=== PATIENT | male | born 1960 | race Caucasian/White ===

== ENCOUNTER 2017-11-28 17:30 | Emergency (ER) | payer OTHER, MEDICARE ==
[~2017-11-28] VITALS: Ht 167.6 cm; Wt 83.9 kg
[~2017-11-28 17:30] MED LIST: ATOR20 PO; BUPR150ER PO; GLIP10 PO; HUMULIN N100 UNIT/1 SQ; Humalog100 UNIT/1 SC; INSULANPEN SC; LISI20 PO; METF500 PO; Novolog Fl100 UNIT/1 SQ; Roxicet 5-3251 EACH PO; SERT100 PO; VITAMIN D-32000 UNIT PO
[2017-11-28] MEDS ORDERED: Wheelchair1 EACH MC (20:40)
== END 2017-11-28 20:47 | disposition home or self-care (01) ==
LOC: ER 17:30
DX: S82.832A Other fracture of upper and lower end of left fibula, initial encounter for closed fracture (principal); E11.9 Type 2 diabetes mellitus without complications; F41.9 Anxiety disorder, unspecified; F32.9 Major depressive disorder, single episode, unspecified; Z88.5 Allergy status to narcotic agent; Z79.899 Other long term (current) drug therapy; Z79.4 Long term (current) use of insulin; W01.0XXA Fall on same level from slipping, tripping and stumbling without subsequent striking against object, initial encounter
CPT/HCPCS: 29515; 73610; 99283-25

== ENCOUNTER → 2018-03-14 | Outpatient (CLI) | payer MEDICARE ==
[~2018-03-14] MED LIST changes: +Wheelchair1 EACH MC
[2018-03-14 20:03] LABS: Bun/Creatinine Ratio 15.3 (12.0-20.0); Calcium, Blood 9.1 mg/dL (8.5-10.1); Creatinine, Blood 1.31 mg/dL (0.60-1.20); Potassium, Blood 4.9 mmol/L (3.5-5.5)
== END | disposition home or self-care (01) ==
LOC: LAB 14:05 → LAB SHORT 14:05
PROVIDERS: Physician Assistant
DX: R79.89 Other specified abnormal findings of blood chemistry (principal)
CPT/HCPCS: 80048

== ENCOUNTER 2020-10-14 08:08 | Day surgery (SDC) | payer MEDICARE ==
[~2020-10-14] VITALS: Ht 170.2 cm; Wt 86.9 kg
[~2020-10-14 08:08] MED LIST changes: +INSULANI SC
--- NOTE | 2020-10-14 09:45 | NUR ---
Ambulatory in Day Surgery WITH PT'S PROSTHETIC LEG. Patient states colon prep results clear YELLOW WITH SMALL FLAKES History, Chart, Medications and Allergies reviewed before start of procedure. Lungs clear T/O to Auscultation. Patient confirms NPO status and agrees with scheduled surgery. Pre-Op teaching done. Pt verbalizes understanding. Patient States Post-Procedure ride home has been arranged.
--- NOTE | 2020-10-14 10:16 | NUR ---
10/14/20 SRINATH GARCIA History, Chart, Medications and Allergies reviewed before start of procedure. 3-LEAD EKG REVIEWED WITH PHYSICIAN PRIOR TO START OF PROCEDURE. O2 VIA N/C INTACT THROUGHOUT SEDATION/PROCEDURE. MONITOR INTACT WITH CONTINUOUS PULSE OXIMETRY AND INTERMITTENT BP. PATIENT DETERMINED TO BE ASA APPROPRIATE FOR PROPOFOL SEDATION PRIOR TO START OF PROCEDURE BY DR. DELUCA.
--- NOTE | 2020-10-14 11:31 | NUR ---
Patient up to Ambulate independently. Gait steady. Discharge instructions reviewed with patient. Patient verbalizes understanding. Copy given to patient to take home. Discharged via wheelchair to private car for ride home.
== END 2020-10-14 22:54 | disposition home or self-care (01) ==
LOC: ORSCMMR 08:08 → ORD 10:00 → ORSCMMR 10:00
PROVIDERS: Internal Medicine Gastroenterology
PROC: 0DBM8ZX Excision of Descending Colon, Via Natural or Artificial Opening Endoscopic, Diagnostic (ICD-10-PCS; principal; 2020-10-14 10:00)
DX: R19.5 Other fecal abnormalities (principal); D12.4 Benign neoplasm of descending colon; Z86.010 Personal history of colon polyps; I10 Essential (primary) hypertension; E11.9 Type 2 diabetes mellitus without complications; Z79.4 Long term (current) use of insulin; Z79.899 Other long term (current) drug therapy
CPT/HCPCS: 82947; 88305; J2704; J7120

== ENCOUNTER 2021-02-21 14:49 | Emergency (ER) | payer MEDICARE ==
[~2021-02-21] VITALS: Ht 167.6 cm; Wt 88.5 kg
== END 2021-02-21 18:20 | disposition home or self-care (01) ==
LOC: ER 14:49
DX: S01.01XA Laceration without foreign body of scalp, initial encounter (principal); M25.511 Pain in right shoulder; E11.9 Type 2 diabetes mellitus without complications; W01.10XA Fall on same level from slipping, tripping and stumbling with subsequent striking against unspecified object, initial encounter
CPT/HCPCS: 12002; 70450; 72125; 73030; 90471; 90714; 96374; 96375; 99285-25; A9270; J2270; J2405

== ENCOUNTER 2021-03-03 14:06 | Emergency (ER) | payer MEDICARE ==
[~2021-03-03] VITALS: Ht 167.6 cm; Wt 89.8 kg
[2021-03-03] MEDS ORDERED: Cephalexin500 M1 PO (15:51)
== END 2021-03-03 16:02 | disposition home or self-care (01) ==
LOC: ER 14:06
DX: S01.01XA Laceration without foreign body of scalp, initial encounter (principal); Z79.899 Other long term (current) drug therapy; Z88.5 Allergy status to narcotic agent; Z79.4 Long term (current) use of insulin; E11.9 Type 2 diabetes mellitus without complications
CPT/HCPCS: 12001; 99282-25

== ENCOUNTER 2021-03-10 13:37 | Emergency (ER) | payer MEDICARE ==
[~2021-03-10] VITALS: Ht 167.6 cm; Wt 86.2 kg
[~2021-03-10 13:37] MED LIST changes: +Cephalexin500 M1 PO
== END 2021-03-10 15:20 | disposition home or self-care (01) ==
LOC: ER 13:37
DX: S01.81XD Laceration without foreign body of other part of head, subsequent encounter (principal); E11.9 Type 2 diabetes mellitus without complications; Z79.4 Long term (current) use of insulin; Z79.899 Other long term (current) drug therapy; Z88.5 Allergy status to narcotic agent; X58.XXXD Exposure to other specified factors, subsequent encounter
CPT/HCPCS: 82947; 99282

== ENCOUNTER → 2021-03-11 | Outpatient (CLI) | payer MEDICARE ==
[2021-03-11 17:14] LABS: Albumin, Blood 1.6 g/dL (3.4-5.0); Albumin/Globulin Ratio 0.5 (0.8-1.8); Bilirubin, Total 0.2 mg/dL (0.1-1.0); Bun/Creatinine Ratio 13.4 (12.0-20.0); Calcium, Blood 8.3 mg/dL (8.5-10.1); Creatinine, Blood 1.57 mg/dL (0.60-1.20); Globulin, Blood 3.4 g/dL (2.2-4.0); Potassium, Blood 4.1 mmol/L (3.5-5.5)
== END ==
LOC: LAB 15:05 → LAB SHORT 15:05
PROVIDERS: Surgery
DX: Z01.812 Encounter for preprocedural laboratory examination (principal); E11.9 Type 2 diabetes mellitus without complications; I10 Essential (primary) hypertension
CPT/HCPCS: 36415; 80053

== ENCOUNTER 2021-03-13 07:10 | Day surgery (SDC) | payer MEDICARE ==
[~2021-03-13] VITALS: Ht 167.6 cm; Wt 86.4 kg
--- NOTE | 2021-03-13 08:45 | NUR ---
PT'S FASTING BLOOD GLUCOSE WAS [address] CARLEY WALKER NOTIFIED. DR. WALKER CONSULTED WITH DR. POTTS ABOUT THE ELEVATED BLOOD SUGAR AND DR. POTTS CAME TO BEDSIDE TO DISCUSS WITH PT WHAT THE RISKS WOULD BE IF HE WERE TO PROCEDE WITH THE PROCEDURE. PT WAS VERY UNDERSTANDING. DR. POTTS PLANS TO RESCHEDULE THE SURGERY AT A LATER TIME.
== END 2021-03-13 23:30 | disposition home or self-care (01) ==
LOC: ORSCMMR 07:10 → ORD 08:30 → ORSCMMR 08:30
DX: K43.0 Incisional hernia with obstruction, without gangrene (principal); Z53.9 Procedure and treatment not carried out, unspecified reason; E11.9 Type 2 diabetes mellitus without complications
CPT/HCPCS: 82947; J0690; J7120

== ENCOUNTER 2021-12-08 07:37 | Emergency (ER) | payer MEDICARE ==
[~2021-12-08] VITALS: Ht 167.6 cm; Wt 74.8 kg
[2021-12-08 08:44] LABS: BASOPHILS ABSOLUTE AUTO 0.07 K/mm3 (0.00-0.23); BASOPHILS PERCENT AUTO 1 % (0-2); EOSINOPHILS ABSOLUTE AUTO 0.08 K/mm3 (0.00-0.68); EOSINOPHILS PERCENT AUTO 1 % (0-6); Hematocrit 41.9 % (37.0-53.0); IMMATURE GRAN ABSOLUTE AUTO 0.15 K/mm3 (0.00-0.10); IMMATURE GRAN PERCENT AUTO 1 % (0-1); LYMPHOCYTES ABSOLUTE AUTO 1.18 K/mm3 (0.84-5.20); LYMPHOCYTES PERCENT AUTO 11 % (21-46); MONOCYTES ABSOLUTE AUTO 0.63 K/mm3 (0.16-1.47); MONOCYTES PERCENT AUTO 6 % (4-13); Mean Corpuscular HGB 31.3 pg (26.0-34.0); Mean Corpuscular HGB Conc 33.4 g/dL (31.5-36.5); Mean Corpuscular Volume 94 fL (80-100); Mean Platelet Volume 9.8 fL (9.1-12.4); NEUTROPHILS ABSOLUTE AUTO 8.65 K/mm3 (1.96-9.15); NEUTROPHILS PERCENT AUTO 80 % (41-73); Platelet Count 186 K/mm3 (150-400); RDW Coefficient Variation 13.2 % (11.7-14.2); RDW Standard Deviation 45.9 fL (35.1-46.3); Red Blood Cell Count 4.47 M/mm3 (4.30-5.90); White Blood Cell Count 10.76 K/mm3 (4.00-11.30)
[2021-12-08 09:06] LABS: Albumin, Blood 1.4 g/dL (3.4-5.0); Albumin/Globulin Ratio 0.4 (0.8-1.8); Bilirubin, Total 0.1 mg/dL (0.1-1.0); Bun/Creatinine Ratio 15.7 (12.0-20.0); Calcium, Blood 8.3 mg/dL (8.5-10.1); Creatinine, Blood 1.4 mg/dL (0.60-1.20); Potassium, Blood 4.4 mmol/L (3.5-5.5); Total Protein, Blood 5.4 g/dL (6.4-8.2)
[2021-12-08] MEDS ORDERED: Prinivil10 MG PO (09:25)
== END 2021-12-08 13:25 | disposition home or self-care (01) ==
LOC: ER 07:37
PROVIDERS: Emergency Medicine
DX: E11.65 Type 2 diabetes mellitus with hyperglycemia (principal); I10 Essential (primary) hypertension; Z88.5 Allergy status to narcotic agent; Z79.4 Long term (current) use of insulin; Z79.899 Other long term (current) drug therapy; Z89.611 Acquired absence of right leg above knee
CPT/HCPCS: 36415; 80053; 82947; 85025; J7042

== ENCOUNTER 2022-04-11 12:19 | Emergency (ER) | payer MEDICARE ==
[~2022-04-11] VITALS: Ht 167.6 cm; Wt 82.5 kg
[~2022-04-11 12:19] MED LIST changes: +Prinivil10 MG PO
[2022-04-11] MEDS ORDERED: GVOKE HYPO1 MG/0.21 (12:30)
[2022-04-11] MEDS ORDERED: ZESTRIL40 M1 PO (12:30)
[2022-04-11] MEDS ORDERED: TOUJEO SOL300 UNIT/2 (12:31)
[2022-04-11] MEDS ORDERED: ADMELOG SO100 UNIT/2 (12:32)
[2022-04-11] MEDS ORDERED: HYDR1TAB94 PO (13:13)
== END 2022-04-11 15:50 | disposition home or self-care (01) ==
LOC: ER 12:19
DX: S52.301A Unspecified fracture of shaft of right radius, initial encounter for closed fracture (principal); S00.83XA Contusion of other part of head, initial encounter; W18.30XA Fall on same level, unspecified, initial encounter; E11.9 Type 2 diabetes mellitus without complications
CPT/HCPCS: 73090

== ENCOUNTER 2022-07-24 20:20 | Inpatient (IN) | payer MEDICARE ==
[~2022-07-24] VITALS: Ht 167.6 cm; Wt 68.8 kg
[~2022-07-24 20:20] MED LIST changes: +ADMELOG SO100 UNIT/2 SC; +GVOKE HYPO1 MG/0.21; +HYDR1TAB94 PO; +TOUJEO SOL300 UNIT/2 SC; +ZESTRIL40 M1 PO
[2022-07-24 21:06] LABS: Base Excess Venous -28.5 mmol/L; Bicarbonate Venous 7.4 mmol/L (24.0-30.0); PCO2 Venous 14.5 mmHg (38-42)
[2022-07-24 21:09] LABS: pH Blood Venous 6.97 (7.34-7.37)
[2022-07-24 21:26] LABS: Albumin, Blood 1.7 g/dL (3.4-5.0); Albumin/Globulin Ratio 0.4 (0.8-1.8); Bilirubin, Total 0.6 mg/dL (0.1-1.0); Bun/Creatinine Ratio 17.5 (12.0-20.0); Calcium, Blood 8.2 mg/dL (8.5-10.1); Creatinine, Blood 1.77 mg/dL (0.60-1.20); Globulin, Blood 4.3 g/dL (2.2-4.0); Potassium, Blood 5.5 mmol/L (3.5-5.5)
[2022-07-24 22:57] LABS: Source, Urine Clean Catch
[2022-07-24 23:04] LABS: BASOPHILS ABSOLUTE AUTO 0.08 K/mm3 (0.00-0.23); BASOPHILS PERCENT AUTO 1 % (0-2); EOSINOPHILS PERCENT AUTO 0 % (0-6); Hematocrit 43.5 % (37.0-53.0); Hemoglobin 14.8 g/dL (13.5-17.5); IMMATURE GRAN ABSOLUTE AUTO 0.21 K/mm3 (0.00-0.10); IMMATURE GRAN PERCENT AUTO 2 % (0-1); LYMPHOCYTES ABSOLUTE AUTO 1.01 K/mm3 (0.84-5.20); LYMPHOCYTES PERCENT AUTO 7 % (21-46); MONOCYTES ABSOLUTE AUTO 0.94 K/mm3 (0.16-1.47); MONOCYTES PERCENT AUTO 7 % (4-13); Mean Corpuscular HGB 30.1 pg (26.0-34.0); Mean Corpuscular Volume 89 fL (80-100); Mean Platelet Volume 11.9 fL (9.1-12.4); NEUTROPHILS ABSOLUTE AUTO 11.56 K/mm3 (1.96-9.15); NEUTROPHILS PERCENT AUTO 84 % (41-73); Platelet Count 302 K/mm3 (150-400); RDW Coefficient Variation 13.2 % (11.7-14.2); Red Blood Cell Count 4.91 M/mm3 (4.30-5.90)
[2022-07-24 23:12] LABS: Appearance, Urine Clear (Clear); Bilirubin, Urine Neg (Neg); Blood, Urine 4+ (Neg); Color, Urine Yellow (P-Yellow); Glucose Qualitative, Urine 4+ (Neg); Ketones, Urine 4+ (Neg); Leukocyte Esterase, Urine Neg (Neg); Nitrite, Urine Neg (Neg); Protein, Urine 4+ (Neg); Urobilinogen, Urine NORM (Normal)
[2022-07-24 23:26] LABS: White Blood Cells, Urine 0-2 /hpf (0-5)
[2022-07-24 23:27] LABS: Bacteria Rare /hpf; Hyaline Casts 0-2 /lpf (0-2); Squamous Epithelial Cells Rare /hpf (Few)
[2022-07-25] VITALS (24 sets, daily range): BP systolic 120–169; BP diastolic 51–107
[2022-07-25 02:57] LABS: Albumin, Blood 2.5 g/dL (3.4-5.0); Albumin/Globulin Ratio 0.7 (0.8-1.8); Bilirubin, Total 0.4 mg/dL (0.1-1.0); Calcium, Blood 8.2 mg/dL (8.5-10.1); Creatinine, Blood 1.76 mg/dL (0.60-1.20); Globulin, Blood 3.8 g/dL (2.2-4.0); Potassium, Blood 4.4 mmol/L (3.5-5.5); Total Protein, Blood 6.3 g/dL (6.4-8.2)
[2022-07-25 03:56] LABS: BASOPHILS ABSOLUTE AUTO 0.03 K/mm3 (0.00-0.23); BASOPHILS PERCENT AUTO 0 % (0-2); EOSINOPHILS PERCENT AUTO 0 % (0-6); Hematocrit 36.6 % (37.0-53.0); Hemoglobin 13.4 g/dL (13.5-17.5); IMMATURE GRAN ABSOLUTE AUTO 0.13 K/mm3 (0.00-0.10); IMMATURE GRAN PERCENT AUTO 1 % (0-1); LYMPHOCYTES PERCENT AUTO 8 % (21-46); MONOCYTES ABSOLUTE AUTO 0.73 K/mm3 (0.16-1.47); MONOCYTES PERCENT AUTO 6 % (4-13); Mean Corpuscular HGB Conc 36.6 g/dL (31.5-36.5); Mean Corpuscular Volume 85 fL (80-100); Mean Platelet Volume 10.6 fL (9.1-12.4); NEUTROPHILS ABSOLUTE AUTO 9.64 K/mm3 (1.96-9.15); NEUTROPHILS PERCENT AUTO 84 % (41-73); Platelet Count 200 K/mm3 (150-400); RDW Coefficient Variation 13.1 % (11.7-14.2); Red Blood Cell Count 4.32 M/mm3 (4.30-5.90); White Blood Cell Count 11.43 K/mm3 (4.00-11.30)
--- NOTE | 2022-07-25 04:45 | NUR ---
NOTIFIED DR. CEBALLOS REGARDING BG OF 170 AND CO2 ON LABS. PROVIDER PLACING ORDERS.
--- NOTE | 2022-07-25 06:24 | NUR ---
SHIFT SUMMARY PATIENT LETHARGIC, DOES OPEN EYES ON COMMAND, A&O X4. VS STABLE. PATIENT ARRIVED WITH KUSSMAUL BREATHING WHICH HAS SUBSIDED. FLUIDS AND INSULIN INFUSING. Q1 BG CHECKS. DENIES PAIN.
--- NOTE | 2022-07-25 09:12 | NUR ---
ASSUMED CARE REPORT FROM SLOAN JARQUIN AT 0700. PT RESTING IN BED. WAKES c VERBAL STIMULI. FOLLOWS SIMPLE DIRECTIONS. ORIENTED TO SELF ONLY. REORIENTS EASILY. RETURNS TO SLEEP WHEN UNDISTURBED. SR, RATE 80'S. BP STABLE. LUNGS CLEAR. ABD ROUND, SOFT, NON TENDER. HYPOACTIVE BT. INSULIN GTT AND D5 c HCO3 INFUSING. q1 CBG. WILL CONTINUE TO MONITOR.
[2022-07-25 10:01] LABS: Bun/Creatinine Ratio 21.2 (12.0-20.0); Calcium, Blood 7.6 mg/dL (8.5-10.1); Creatinine, Blood 1.37 mg/dL (0.60-1.20)
[2022-07-25 10:28] LABS: Percent Saturation 13.5 % (20.0-50.0); Thyroid Stimulating Hormone 1.65 uIU/mL (0.360-4.800)
[2022-07-25 15:14] LABS: Bun/Creatinine Ratio 20.6 (12.0-20.0); Calcium, Blood 7.7 mg/dL (8.5-10.1); Creatinine, Blood 1.31 mg/dL (0.60-1.20); Potassium, Blood 3.4 mmol/L (3.5-5.5)
--- NOTE | 2022-07-25 17:26 | NUR ---
SHIFT SUMMARY PT TRANSITIONED OFF INSULIN GTT THIS SHIFT. TOLERATING CLEAR LIQUID WELL. DENIES NAUSEA. FLAT AFFECT. A&O X 2. FOLLOWS COMMANDS. RELUCTANT TO ANSWER QUESTIONS. LUNGS CLEAR. SR, RATE 80'S. BP STABLE. ABD ROUND, SOFT, NON TENDER. BT X 4. BEDBATH COMPLETE THIS SHIFT. PT ABLE TO REPOSITION SELF IN BED, ASSIST c CARE. NEEDS ENCOURAGEMENT. WILL CONTINUE TO MONITOR UNTIL REPORT TO ONCOMING NURSE.
--- NOTE | 2022-07-25 19:23 | NUR ---
ASSUMED CARE PATIENT IN BED WATCHING TV/EATING DINNER ALERT. NO FAMILY AT BEDSIDE. FLUIDS INFUSING. VS STABLE
[2022-07-25 21:04] LABS: Bun/Creatinine Ratio 20.6 (12.0-20.0); Calcium, Blood 7.6 mg/dL (8.5-10.1); Creatinine, Blood 1.26 mg/dL (0.60-1.20); Potassium, Blood 3.2 mmol/L (3.5-5.5)
--- NOTE | 2022-07-25 22:11 | NUR ---
NOTIFIED DR. VARGHESE OF POTASSIUM, CO2, BLOOD GLUCOSE. ORDERS RECEIVED.
[2022-07-26] VITALS (13 sets, daily range): BP systolic 110–148; BP diastolic 48–75
[2022-07-26 02:37] LABS: Hematocrit 31.8 % (37.0-53.0); Hemoglobin 11.4 g/dL (13.5-17.5); Mean Corpuscular HGB 30.8 pg (26.0-34.0); Mean Corpuscular HGB Conc 35.8 g/dL (31.5-36.5); Mean Corpuscular Volume 86 fL (80-100); Mean Platelet Volume 10.3 fL (9.1-12.4); Platelet Count 149 K/mm3 (150-400); RDW Coefficient Variation 13.6 % (11.7-14.2); RDW Standard Deviation 41.9 fL (35.1-46.3); White Blood Cell Count 6.48 K/mm3 (4.00-11.30)
[2022-07-26 02:56] LABS: Albumin, Blood 1.6 g/dL (3.4-5.0); Albumin/Globulin Ratio 0.5 (0.8-1.8); Bilirubin, Total 0.4 mg/dL (0.1-1.0); Bun/Creatinine Ratio 20.2 (12.0-20.0); Calcium, Blood 7.4 mg/dL (8.5-10.1); Creatinine, Blood 1.29 mg/dL (0.60-1.20); Potassium, Blood 3.4 mmol/L (3.5-5.5); Total Protein, Blood 4.6 g/dL (6.4-8.2)
--- NOTE | 2022-07-26 06:46 | NUR ---
SHIFT SUMMARY PATIENT WITH FLAT AFFECT/WITHDRAWN. MAKES NONSENICAL STATEMENTS, DIFFICULT TO COMMUNICATE AND PATIENT WILL OCCASIONALY NOT ANSWER WHEN ATTEMPTING TO ASSESS NEURO STATUS, PAIN , NEEDS.
[2022-07-26 08:48] LABS: Bun/Creatinine Ratio 19.7 (12.0-20.0); Calcium, Blood 7.9 mg/dL (8.5-10.1); Creatinine, Blood 1.22 mg/dL (0.60-1.20); Potassium, Blood 3.5 mmol/L (3.5-5.5)
--- NOTE | 2022-07-26 09:29 | NUR ---
ASSUMED CARE REPORT FROM SLOAN JARQUIN AT 0700. PT RESTING IN BED. OPENS EYES SPONT, RELUCTANT TO ANSWER QUESTIONS BUT ANSWERS APPROPRIATELY. FOLLOWS COMMANDS. A&OX 3. DENIES ABD PAIN OR NAUSEA. TOLERATED BREAKFAST WELL. ADVANCED DIET. LUNGS DIM IN BASES. SR, RATE 80'S. BP STABLE. ABD ROUND, SOFT, NON TENDER. BT X 4. K REPLACED. IVF AT 125 ML/HR. ANTICIPATE STATUS CHANGE THIS SHIFT. WILL CONTINUE TO MONITOR.
--- NOTE | 2022-07-26 17:09 | NUR ---
SHIFT SUMMARY/TRANSFER TO MEDICAL FLOOR NO ACUTE CHANGES THIS SHIFT. PT CONTINUES TO INTERMITTANTLY HAVE FLAT AFFECT AND RELUCTANCE TO ANSWER QUESTIONS. WILL ANSWER QUESTIONS APPROPRIATELY WHEN PRESSED. FOLLOWS COMMANDS. PT TOLERATED BREAKFAST WELL, ATE LUNCH QUICKLY AND REQUIRED BED CHANGE p URINATING, PT THEN VOMITED p LUNCH. STATES NAUSEA RESOLVED. PT ONLY C/O BEING TIRED. LUNGS CLEAR. VSS. REPORT TO TOÑA DING RN. WILL TRANSFER PT c ALL BELONGINGS TO ROOM 355.
--- NOTE | 2022-07-26 18:17 | NUR ---
Pt arrived to 355 via bed, he is a/ox3, cooperative with care, denies any needs or complaints, settled in room and call light in reach, water available, pt flat, only answering yes/no. turned to his side with eyes closed.
--- NOTE | 2022-07-27 04:58 | NUR ---
MIN WAS EXTREMELY QUIET OVERNIGHT. HE WOULDN'T HAVE MOVED AT ALL IF HE HADN'T BEEN PUSHED AND ASSISTED TO CHANGE POSITIONS. HE WAS VERY FLAT, AND AVOIDED EYE CONTACT WITH ANY STAFF WHO CAME INTO THE ROOM. BLOOD SUGAR WAS 223 AT HS, AND HE ASKED FOR AND RECEIVED A POPSICLE TWICE OVERNIGHT (THESE WERE HIS ONLY SNACKS) NO OTHER SIGNIFICANT INFORMATION NOTED. WILL CONTINUE TO MONITOR
[2022-07-27 05:12] VITALS: BP 138/84
[2022-07-27 08:29] LABS: Albumin, Blood 1.5 g/dL (3.4-5.0); Anion Gap 2 mmol/L (6-16); Blood Urea Nitrogen 19 mg/dL (8-24); Bun/Creatinine Ratio 15.8 (12.0-20.0); CO2, Blood 24 mmol/L (21-32); Calcium, Blood 8.1 mg/dL (8.5-10.1); Chloride, Blood 115 mmol/L (98-108); Glomerular Filtration Rate 68 (60-); Glucose, Blood 157 mg/dL (70-99); Magnesium, Blood 1.8 mg/dL (1.6-2.4); Phosphorus, Blood 1.8 mg/dL (2.5-4.9); Sodium, Blood 141 mmol/L (136-145)
[2022-07-27 08:44] VITALS: BP 149/65
[2022-07-27] MEDS ORDERED: INSULANI SC (13:39)
[2022-07-27] MEDS ORDERED: HUMALOG KW100 UNIT/1 SC (13:41)
[2022-07-27] MEDS ORDERED: PANT20 PO (13:41)
[2022-07-27] MEDS ORDERED: SERT25 PO (13:41)
[2022-07-27] MEDS ORDERED: SEMGLEE (Y100 UNIT/2 SC (14:00)
[2022-07-27 19:18] VITALS: BP 154/80
--- NOTE | 2022-07-27 19:28 | NUR ---
END OF SHIFT SUMMARY: PATIENT DENIED PAIN OR DISCOMFORT THROUGHOUT THE SHIFT. PATIENT HAD A FLAT AFFECT AND WAS WITHDRAWN THROUGHOUT THE DAY. PATIENT SMILED OCCASIONALLY. PATIENT CALM AND COOPERATIVE WITH CARE. PATIENT CHOSE TO SLEEP MOST OF THE DAY. PATIENT WILL ASSIST WITH CARE, BUT DOES CHOSE TO HAVE HELP WHENEVER POSSIBLE. PATIENT UP TO THE CHAIR FOR DINNER WITH A MIN-MOD ASSIST, STAND PIVOT. PATIENT WORKED WITH PT AND OT. PATIENT WAS SCHEDULED FOR DISCHARGE TODAY. PATIENT'S REPORTED THAT THEIR PCP HAD RECOMMENDED SNF. PATIENT'S WAS VERY UPSET THAT WE WERE SENDING HIM HOME WITH HOME HEALTH. AFTER COORDINATING WITH DR. CRENSHAW AND [facility], PATIENT WAS ABLE TO WORK WITH PT AND OT. PATIENT'S WAS UPDATED ABOUT THE SNF RECOMMENDATION.
--- NOTE | 2022-07-28 04:16 | NUR ---
CONCRETE POURER SUMMARY NO ACUTE EVENTS THIS SHIFT. A&OX4. PATIENT EFFECTIVELY COMMUNICATES NEEDS. FLAT AFFECT. VSS. RR EVEN AND UNLABORED ON RA. PATIENT NOTED TO SLEEP WELL THROUGHOUT THE NIGHT. CALL LIGHT WITHIN REACH. BED LOW AND LOCKED. THIS RN WILL CONTINUE TO MONITOR.
[2022-07-28 04:46] VITALS: BP 143/77
[2022-07-28 07:23] VITALS: BP 140/81
[2022-07-28 15:12] VITALS: BP 139/77
--- NOTE | 2022-07-28 15:13 | NUR ---
SHIFT SUMMARY PT RESTING QUIETLY AT START OF SHIFT. WOKE EASILY FOR CARE. UP TO CHAIR FOR MEALS. PT ABLE TO TX SELF BACK AND FORTH FROM BED TO CHAIR; W/C BOUND AT BASELINE D/T R AKA. PT/OT BOTH IN TO WORK WITH PT TODAY. PT TO D/C TO SNF WHEN BED AVAILABLE. BRACE TO R ARM D/T HX OF CVA AND RECENT INJURY. PER REPORT, PT WITH FREQUENT FALLS AT HOME. SS INSULIN ADJUSTED TO MED THIS AM. RESTING QUIETLY AT THIS TIME. CALL LT IN REACH.
[2022-07-28 19:09] VITALS: BP 127/66
[2022-07-28] MEDS ORDERED: AMLODIPINE BESYL5 MG PO (21:32)
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
[2022-07-29 04:05] VITALS: BP 129/63
[2022-07-29 07:55] VITALS: BP 135/64
[2022-07-29 09:33] LABS: Albumin, Blood 1.7 g/dL (3.4-5.0); Anion Gap 0 mmol/L (6-16); Blood Urea Nitrogen 15 mg/dL (8-24); Bun/Creatinine Ratio 12.2 (12.0-20.0); CO2, Blood 32 mmol/L (21-32); Calcium, Blood 8.6 mg/dL (8.5-10.1); Chloride, Blood 108 mmol/L (98-108); Creatinine, Blood 1.23 mg/dL (0.60-1.20); Glomerular Filtration Rate 66 (60-); Glucose, Blood 113 mg/dL (70-99); Phosphorus, Blood 2.7 mg/dL (2.5-4.9); Potassium, Blood 3.5 mmol/L (3.5-5.5); Sodium, Blood 140 mmol/L (136-145)
[2022-07-29 13:30] LABS: SARS-Cov-2 (COVID-19) PCR, MMC NEGATIVE (NEGATIVE)
[2022-07-29] MEDS ORDERED: INSULANPEN SC (14:29)
[2022-07-29] MEDS ORDERED: SERT25 PO (14:30)
[2022-07-29] MEDS ORDERED: PANT20 PO (14:30)
[2022-07-29] MEDS ORDERED: Lisinopril2.5 MG PO (14:31)
[2022-07-29] MEDS ORDERED: DOCUZEN 8.6-501 EACH PO (14:32)
[2022-07-29] MEDS ORDERED: MIRALAX17 GM PO (14:32)
--- NOTE | 2022-07-29 16:08 | NUR ---
SHIFT SUMMARY PT RESTING QUIETLY AT START OF SHIFT. NO C/O. PT MEDICALLY STABLE, WAITING FOR INSURANCE TO CLEAR FOR SNF. MACHINE FIXER LATER IN TO REPORT INSURANCE APPROVED. TRANSPORTATION ARRANGED FOR 1600. PT'S BROUGHT IN PT'S W/C FOR TX TO [facility] PT ABLE TO TX SELF TO CHAIR. PT ALSO ABLE TO WORK WITH THERAPY AGAIN TODAY. PT NOW ABLE TO TX TO CHAIR FROM BED AND BACK WHEN FINISHED EATING. PT DENIED FURTHER NEEDS. BELONGINGS WENT WITH PT.
== END 2022-07-29 16:07 | DRG 638 ==
LOC: ER 20:20 → ICUW 22:00 → MEDS 22:00 → ICUE 07-25 01:34 → MEDS 07-26 18:57 → ENPENDDIS 07-27 09:50 → MEDS 07-29 16:07
PROVIDERS: Emergency Medicine; Internal Medicine; ADMIT Internal Medicine
DX: E11.10 Type 2 diabetes mellitus with ketoacidosis without coma (principal); N17.9 Acute kidney failure, unspecified; E88.09 Other disorders of plasma-protein metabolism, not elsewhere classified; D63.1 Anemia in chronic kidney disease; Z89.611 Acquired absence of right leg above knee; Z20.822 Contact with and (suspected) exposure to COVID-19; F41.9 Anxiety disorder, unspecified; F32.A Depression, unspecified; E86.0 Dehydration; E78.00 Pure hypercholesterolemia, unspecified; I12.9 Hypertensive chronic kidney disease with stage 1 through stage 4 chronic kidney disease, or unspecified chronic kidney disease; N18.30 Chronic kidney disease, stage 3 unspecified; E11.22 Type 2 diabetes mellitus with diabetic chronic kidney disease; Z91.148 Patient's other noncompliance with medication regimen for other reason; Z98.890 Other specified postprocedural states; Z87.891 Personal history of nicotine dependence; Z79.4 Long term (current) use of insulin; Z79.899 Other long term (current) drug therapy
CPT/HCPCS: 36415; 80048; 80053; 80069; 81001; 82607; 82728; 82746; 82803; 82947; 83540; 83550; 83735; 84145; 84443; 85025; 85027; 93005; 93010; 96361; 96374; 97110; 97129; 97162; 97166; 97530; 97535; 99285-25; A9270; C1751; C9113; J1650; J1815; J2405; J3480; J7030; J7050; J7060; J7070; P9046; U0004

== ENCOUNTER 2024-06-21 14:42 | Observation (INO) | payer MEDICARE ==
[~2024-06-21] VITALS: Ht 167.6 cm; Wt 70.7 kg
[~2024-06-21 14:42] MED LIST changes: +AMLODIPINE BESYL5 MG PO; +DOCUZEN 8.6-501 EACH PO; +HUMALOG KW100 UNIT/1 SC; +JARDIANCE25 MG PO; +Lisinopril2.5 MG PO; +MIRALAX17 GM PO; +PANT20 PO; +SEMGLEE (Y100 UNIT/2 SC; +SERT25 PO; +VITAMIN D5000 UNIT
[2024-06-21] MEDS ORDERED: Lactated Ringer's 1,000 ML IV SCH (15:05)
[2024-06-21 15:16] LABS: BASOPHILS ABSOLUTE AUTO 0.11 K/mm3 (0.00-0.23); BASOPHILS PERCENT AUTO 2 % (0-2); EOSINOPHILS ABSOLUTE AUTO 0.09 K/mm3 (0.00-0.68); EOSINOPHILS PERCENT AUTO 1 % (0-6); Hematocrit 44.3 % (37.0-53.0); Hemoglobin 15.8 g/dL (13.5-17.5); IMMATURE GRAN ABSOLUTE AUTO 0.03 K/mm3 (0.00-0.10); IMMATURE GRAN PERCENT AUTO 0 % (0-1); LYMPHOCYTES ABSOLUTE AUTO 0.76 K/mm3 (0.84-5.20); LYMPHOCYTES PERCENT AUTO 10 % (21-46); MONOCYTES ABSOLUTE AUTO 0.33 K/mm3 (0.16-1.47); MONOCYTES PERCENT AUTO 4 % (4-13); Mean Corpuscular HGB 31.4 pg (26.0-34.0); Mean Corpuscular HGB Conc 35.7 g/dL (31.5-36.5); Mean Corpuscular Volume 88 fL (80-100); Mean Platelet Volume 11.3 fL (9.1-12.4); NEUTROPHILS ABSOLUTE AUTO 6.13 K/mm3 (1.96-9.15); NEUTROPHILS PERCENT AUTO 82 % (41-73); Platelet Count 208 K/mm3 (150-400); RDW Coefficient Variation 12.1 % (11.7-14.2); Red Blood Cell Count 5.03 M/mm3 (4.30-5.90); White Blood Cell Count 7.45 K/mm3 (4.00-11.30)
[2024-06-21 15:46] LABS: Beta-hydroxybutyrate 36.3 mg/dL (0.2-2.8)
[2024-06-21 15:53] LABS: Albumin, Blood 2.1 g/dL (3.4-5.0); Albumin/Globulin Ratio 0.5 (0.8-1.8); Bilirubin, Total 0.5 mg/dL (0.1-1.0); Creatinine, Blood 1.31 mg/dL (0.60-1.20); Globulin, Blood 3.9 g/dL (2.2-4.0); Potassium, Blood 4.3 mmol/L (3.5-5.5)
[2024-06-21 16:51] LABS: Base Excess Venous -5.5 mmol/L; Bicarbonate Venous 19.9 mmol/L (24.0-30.0); PCO2 Venous 43.3 mmHg (38-42); pH Blood Venous 7.29 (7.34-7.37)
[2024-06-21] MEDS ORDERED: NS 1,000 ML IV SCH ×2 (17:00→17:30)
[2024-06-21] MEDS ORDERED: Insulin Regular 100 Unit/ML 1ML Dose IV ONE (17:00)
[2024-06-21] MEDS ORDERED: FLU VACC TS2024-25(6MOS UP)/PF 45 MCG/0.5 ML SYRINGE IM SCH (17:35)
[2024-06-21 19:34] LABS: Bun/Creatinine Ratio 15.2 (12.0-20.0); Calcium, Blood 8.2 mg/dL (8.5-10.1); Creatinine, Blood 1.25 mg/dL (0.60-1.20); Potassium, Blood 3.9 mmol/L (3.5-5.5)
[2024-06-21 20:27] VITALS: BP 137/71; BP 177/71
[2024-06-21] MEDS ORDERED: Atorvastatin 10 MG Tab PO SCH (21:00)
[2024-06-21] MEDS ORDERED: Insulin Regular 100 UNIT/ML 10ML Vial SC SCH (21:00)
[2024-06-21] MEDS ORDERED: Insulin Glargine-Yfgn 100 Unit/mL 3 ML SYR SC SCH (21:00)
[2024-06-21] MEDS ORDERED: Insulin Human Lispro 100 Units/ML 3ML Syringe SC SCH (21:00)
[2024-06-21 22:39] LABS: Bicarbonate Venous 23.3 mmol/L (24.0-30.0); PCO2 Venous 34.9 mmHg (38-42); pH Blood Venous 7.42 (7.34-7.37)
[2024-06-21 23:12] LABS: Creatinine, Blood 1.21 mg/dL (0.60-1.20); Potassium, Blood 3.6 mmol/L (3.5-5.5)
[2024-06-22] VITALS (7 sets, daily range): BP systolic 137–169; BP diastolic 74–99
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
[2024-06-22 03:03] LABS: BASOPHILS ABSOLUTE AUTO 0.08 K/mm3 (0.00-0.23); BASOPHILS PERCENT AUTO 1 % (0-2); EOSINOPHILS ABSOLUTE AUTO 0.56 K/mm3 (0.00-0.68); EOSINOPHILS PERCENT AUTO 7 % (0-6); Hemoglobin 14.1 g/dL (13.5-17.5); IMMATURE GRAN ABSOLUTE AUTO 0.04 K/mm3 (0.00-0.10); IMMATURE GRAN PERCENT AUTO 1 % (0-1); LYMPHOCYTES ABSOLUTE AUTO 2.56 K/mm3 (0.84-5.20); LYMPHOCYTES PERCENT AUTO 31 % (21-46); MONOCYTES ABSOLUTE AUTO 0.48 K/mm3 (0.16-1.47); MONOCYTES PERCENT AUTO 6 % (4-13); Mean Corpuscular HGB 31.8 pg (26.0-34.0); Mean Corpuscular HGB Conc 36.2 g/dL (31.5-36.5); Mean Corpuscular Volume 88 fL (80-100); Mean Platelet Volume 10.9 fL (9.1-12.4); NEUTROPHILS ABSOLUTE AUTO 4.42 K/mm3 (1.96-9.15); NEUTROPHILS PERCENT AUTO 54 % (41-73); Platelet Count 188 K/mm3 (150-400); RDW Coefficient Variation 12.1 % (11.7-14.2); Red Blood Cell Count 4.44 M/mm3 (4.30-5.90); White Blood Cell Count 8.14 K/mm3 (4.00-11.30)
[2024-06-22 03:34] LABS: Calcium, Blood 7.5 mg/dL (8.5-10.1); Creatinine, Blood 1.21 mg/dL (0.60-1.20); Potassium, Blood 3.6 mmol/L (3.5-5.5)
--- NOTE | 2024-06-22 05:11 | NUR ---
SHIFT SUMMURY: ALERT AND ORIENTED X 4. ON RA WITH SATURATION >95. MD NOTIFIED OF BLOOD SUGAR ON ARRIVAL AND ORDERED LOW SLIDING SCALE ACHS INSULIN. VITALS CONTINUE TO BE STABLEL. NS INFUSING PER EMAR. PATIENT CALLING APPROPRIATELY AND CALL LIGHT WITHIN REACH. BED IN THE LOWEST POSITION.
[2024-06-22 06:58] LABS: Bun/Creatinine Ratio 11.8 (12.0-20.0); Calcium, Blood 7.8 mg/dL (8.5-10.1); Creatinine, Blood 1.27 mg/dL (0.60-1.20); Potassium, Blood 3.7 mmol/L (3.5-5.5)
[2024-06-22] MEDS ORDERED: buPROPion HCL 150 MG TAB.SR.12H PO SCH (09:00)
[2024-06-22] MEDS ORDERED: Enoxaparin 40 MG/0.4 ML SYR SC SCH (09:00)
[2024-06-22] MEDS ORDERED: Empagliflozin 25 MG TAB PO SCH (09:00)
[2024-06-22] MEDS ORDERED: Cholecalciferol 1000 Unit Tablet (=25MCG) PO SCH (09:00)
[2024-06-22 12:48] LABS: Bun/Creatinine Ratio 12.6 (12.0-20.0); Calcium, Blood 8.3 mg/dL (8.5-10.1); Creatinine, Blood 1.19 mg/dL (0.60-1.20)
[2024-06-22] MEDS ORDERED: Insulin Regular 100 UNIT/ML 10ML Vial SC ONE (13:55)
[2024-06-22] MEDS ORDERED: Insulin Regular 100 Unit/ML 1ML Dose SC ONE (13:55)
[2024-06-22] MEDS ORDERED: Insulin Regular 100 UNIT/ML 10ML Vial SC SCH (16:30)
[2024-06-22 17:25] LABS: Bun/Creatinine Ratio 12.3 (12.0-20.0); Calcium, Blood 8.4 mg/dL (8.5-10.1); Creatinine, Blood 1.22 mg/dL (0.60-1.20); Potassium, Blood 3.9 mmol/L (3.5-5.5)
--- NOTE | 2024-06-22 17:34 | NUR ---
Medical Status / End of Shift Pt A&O x4. Pt reports continued blurry vision, stating "it hasn't really changed." Pt reports blurry vision ongoing "for about 2 weeks." Pt VSS. Spo2 > 92% on RA. Monitor showing NSR prior to telemetry removal. Pt made medical no telemetry status this shift. Pt CBG continues to be elevated. MD w/ order for additional one time 5 units insulin this afternoon in addition to SSC & SSC increased from low to medium this shift. NS gtt rate also increased this shift per MD order. Pt 2 person moderate/heavy assist w/ gait belt to stand/pivot for transfers. Pt w/ R AKA w/ prosthetic leg in rm. Pt reports prosthetic leg "doesn't fit. It just falls right off."
--- NOTE | 2024-06-22 21:19 | NUR ---
ALERT AND ORIENTED X4. ON ROOM AIR. BLOOD PRESSURES STABLE AND SATURATIONS ABOVE 90. CALLS APPROPRIATELY FOR ASSISTANCE. NO TELI. DENIES PAIN. BLOOD GLUCOSE IS TRENDING DOWM. REPORT GIVEN TO BRITTON SANCHEZ. LUIS TRANFERED TO ROOM 329.
--- NOTE | 2024-06-22 22:30 | NUR ---
2132 Patient was received via bed from room PCU 16 to room 329. Pt is alert and oriented. He is oriented to room and call light. Lungs are clear HR regular. Pt is not on tele. Pt arrived with belongings, meds and rt leg prosthetic. Pt denies any pain.
[2024-06-23 02:33] VITALS: BP 126/61
--- NOTE | 2024-06-23 04:44 | NUR ---
Rn summary: Patient has rested on and off this shift. He has needed his blankets readjusted several times. IV fluids continue. Patient continues to deny discomfort. Plan is for poss DC home with . Call light remains in reach.
[2024-06-23 07:43] VITALS: BP 148/69
[2024-06-23 09:58] LABS: Bun/Creatinine Ratio 8.6 (12.0-20.0); Calcium, Blood 8.1 mg/dL (8.5-10.1); Creatinine, Blood 1.16 mg/dL (0.60-1.20); Potassium, Blood 3.2 mmol/L (3.5-5.5)
[2024-06-23] MEDS ORDERED: Potassium Chloride 20 MEQ TabCR PO ONE (12:00)
[2024-06-23] MEDS ORDERED: LISI20 PO (13:11)
[2024-06-23] MEDS ORDERED: Vitamin D1000 UNI1 PO (13:12)
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
== END 2024-06-23 14:04 | disposition home or self-care (01) ==
LOC: ER 14:42 → PCU 14:43 → MEDS 06-22 21:40 → ENPENDDIS 06-23 12:49 → MEDS 06-23 14:04
PROVIDERS: Emergency Medicine; ADMIT Family Medicine
DX: E11.65 Type 2 diabetes mellitus with hyperglycemia (principal); H53.8 Other visual disturbances; I12.9 Hypertensive chronic kidney disease with stage 1 through stage 4 chronic kidney disease, or unspecified chronic kidney disease; E11.22 Type 2 diabetes mellitus with diabetic chronic kidney disease; N18.30 Chronic kidney disease, stage 3 unspecified; E78.5 Hyperlipidemia, unspecified; K06.9 Disorder of gingiva and edentulous alveolar ridge, unspecified; E87.1 Hypo-osmolality and hyponatremia; E11.10 Type 2 diabetes mellitus with ketoacidosis without coma; Z66 Do not resuscitate; Z91.148 Patient's other noncompliance with medication regimen for other reason; Z79.4 Long term (current) use of insulin; Z79.84 Long term (current) use of oral hypoglycemic drugs; Z79.899 Other long term (current) drug therapy; Z88.5 Allergy status to narcotic agent; Z89.611 Acquired absence of right leg above knee
CPT/HCPCS: 36415; 80048; 80053; 82010; 82803; 82947; 83036; 83930; 85025; 96360; 96361; 96372; 97110; 97161; 97165; 97530; 97535; 99285-25; A9270; G0378; J1650; J1815; J7030; J7120

== ENCOUNTER 2024-07-05 17:05 | Inpatient (IN) | payer MEDICARE ==
[~2024-07-05] VITALS: Ht 167.6 cm; Wt 66.1 kg
[~2024-07-05 17:05] MED LIST changes: +Vitamin D1000 UNI1 PO
[2024-07-05] MEDS ORDERED: NS 1,000 ML IV SCH (17:45)
[2024-07-05 17:51] LABS: Base Excess Venous -21.3 mmol/L; Bicarbonate Venous 11.3 mmol/L (24.0-30.0); PCO2 Venous 20.9 mmHg (38-42)
[2024-07-05 17:52] LABS: pH Blood Venous 7.16 (7.34-7.37)
[2024-07-05 18:17] LABS: BASOPHILS ABSOLUTE AUTO 0.07 K/mm3 (0.00-0.23); BASOPHILS PERCENT AUTO 1 % (0-2); EOSINOPHILS ABSOLUTE AUTO 0.01 K/mm3 (0.00-0.68); EOSINOPHILS PERCENT AUTO 0 % (0-6); Hematocrit 47.1 % (37.0-53.0); Hemoglobin 16.8 g/dL (13.5-17.5); IMMATURE GRAN ABSOLUTE AUTO 0.09 K/mm3 (0.00-0.10); IMMATURE GRAN PERCENT AUTO 1 % (0-1); LYMPHOCYTES PERCENT AUTO 14 % (21-46); MONOCYTES ABSOLUTE AUTO 0.65 K/mm3 (0.16-1.47); MONOCYTES PERCENT AUTO 7 % (4-13); Mean Corpuscular HGB 31.5 pg (26.0-34.0); Mean Corpuscular HGB Conc 35.7 g/dL (31.5-36.5); Mean Corpuscular Volume 88 fL (80-100); Mean Platelet Volume 11.5 fL (9.1-12.4); NEUTROPHILS ABSOLUTE AUTO 7.53 K/mm3 (1.96-9.15); NEUTROPHILS PERCENT AUTO 78 % (41-73); Platelet Count 209 K/mm3 (150-400); RDW Coefficient Variation 13.4 % (11.7-14.2); RDW Standard Deviation 43.2 fL (35.1-46.3); Red Blood Cell Count 5.33 M/mm3 (4.30-5.90); White Blood Cell Count 9.65 K/mm3 (4.00-11.30)
[2024-07-05 19:38] LABS: Albumin, Blood 2.1 g/dL (3.4-5.0); Albumin/Globulin Ratio 0.5 (0.8-1.8); Bilirubin, Total 0.5 mg/dL (0.1-1.0); Bun/Creatinine Ratio 29.1 (12.0-20.0); Calcium, Blood 9.3 mg/dL (8.5-10.1); Creatinine, Blood 1.17 mg/dL (0.60-1.20); Globulin, Blood 4.5 g/dL (2.2-4.0); Potassium, Blood 4.3 mmol/L (3.5-5.5); Total Protein, Blood 6.6 g/dL (6.4-8.2)
[2024-07-05 19:40] LABS: Beta-hydroxybutyrate 78.1 mg/dL (0.2-2.8)
[2024-07-05] MEDS ORDERED: Insulin Human Regular 100 UNIT in NS 100 ML IV SCH (19:50)
[2024-07-05] MEDS ORDERED: Lactated Ringer's 1,000 ML IV ONE (19:55)
[2024-07-05] MEDS ORDERED: Potassium Chl 20MEQ/Water100ML 100 ML IV ONE (19:55)
[2024-07-05] MEDS ORDERED: Insulin Regular 100 Unit/ML 1ML Dose SC ONE ×2 (20:30→20:40)
[2024-07-05] MEDS ORDERED: Dextrose 50% 50 ML Vial IV PRN (21:35)
[2024-07-05] MEDS ORDERED: Lactated Ringer's 1,000 ML IV SCH (21:40)
[2024-07-05] MEDS ORDERED: Ondansetron HCl 2 MG / ML 2ML Vial IV PRN (21:40)
[2024-07-05] MEDS ORDERED: Lactated Ringer's 500 ML IV ONE (21:40)
[2024-07-05] MEDS ORDERED: LORazepam 2 MG/ML 1ML Injection IV ONE (22:00)
[2024-07-05 22:12] LABS: Source, Urine Clean Catch
[2024-07-05 22:45] VITALS: BP 135/62
[2024-07-05 22:50] LABS: Bilirubin, Urine Neg (Neg); Blood, Urine 3+ (Neg); Glucose Qualitative, Urine 4+ (Neg); Ketones, Urine 4+ (Neg); Leukocyte Esterase, Urine Neg (Neg); Nitrite, Urine Neg (Neg); Protein, Urine 4+ (Neg); Specific Gravity, Urine 1.025 (1.003-1.022); Urobilinogen, Urine NORM (Normal)
[2024-07-05 22:56] LABS: Appearance, Urine Clear (Clear); Color, Urine Pale Yellow (P-Yellow)
[2024-07-05 22:57] LABS: Red Blood Cells, Urine 0-2 /hpf (0-2)
[2024-07-05 22:58] LABS: Bacteria Few /hpf; Squamous Epithelial Cells Few /hpf (Few)
[2024-07-05 23:00] VITALS: BP 141/57
[2024-07-05] MEDS ORDERED: D5W-1/2NS 1,000 ML IV SCH (23:00)
[2024-07-05 23:09] LABS: Bun/Creatinine Ratio 32.5 (12.0-20.0); Calcium, Blood 8.6 mg/dL (8.5-10.1); Creatinine, Blood 1.17 mg/dL (0.60-1.20); Potassium, Blood 4.1 mmol/L (3.5-5.5)
[2024-07-05 23:15] VITALS: BP 121/70
[2024-07-05 23:45] VITALS: BP 131/57
[2024-07-05] MEDS ORDERED: Potassium Chloride 40 MEQ in NS 250 ML IV ONE (23:55)
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
[2024-07-06] VITALS (88 sets, daily range): BP systolic 88–162; BP diastolic 44–136
[2024-07-06 03:45] LABS: BASOPHILS ABSOLUTE AUTO 0.06 K/mm3 (0.00-0.23); BASOPHILS PERCENT AUTO 1 % (0-2); EOSINOPHILS ABSOLUTE AUTO 0.02 K/mm3 (0.00-0.68); EOSINOPHILS PERCENT AUTO 0 % (0-6); Hematocrit 47.4 % (37.0-53.0); Hemoglobin 16.7 g/dL (13.5-17.5); IMMATURE GRAN ABSOLUTE AUTO 0.06 K/mm3 (0.00-0.10); IMMATURE GRAN PERCENT AUTO 1 % (0-1); LYMPHOCYTES ABSOLUTE AUTO 1.75 K/mm3 (0.84-5.20); LYMPHOCYTES PERCENT AUTO 18 % (21-46); MONOCYTES ABSOLUTE AUTO 0.65 K/mm3 (0.16-1.47); MONOCYTES PERCENT AUTO 7 % (4-13); Mean Corpuscular HGB 31.5 pg (26.0-34.0); Mean Corpuscular HGB Conc 35.2 g/dL (31.5-36.5); Mean Corpuscular Volume 89 fL (80-100); Mean Platelet Volume 11.8 fL (9.1-12.4); NEUTROPHILS PERCENT AUTO 74 % (41-73); Platelet Count 203 K/mm3 (150-400); RDW Coefficient Variation 13.5 % (11.7-14.2); RDW Standard Deviation 43.7 fL (35.1-46.3); White Blood Cell Count 9.54 K/mm3 (4.00-11.30)
[2024-07-06 03:56] LABS: Bun/Creatinine Ratio 33.7 (12.0-20.0); Calcium, Blood 8.9 mg/dL (8.5-10.1); Creatinine, Blood 1.04 mg/dL (0.60-1.20); Potassium, Blood 3.7 mmol/L (3.5-5.5)
[2024-07-06] MEDS ORDERED: Potassium Chl 20MEQ/Water100ML 100 ML IV SCH (04:40)
--- NOTE | 2024-07-06 05:58 | NUR ---
SHIFT SUMMARY: NO ACUTE CHANGES OVERNIGHT; VSS. INSULIN GTT @ 4.8 UNITS, D5 1/2 NS @ 200 MLS/HR. LAST POTASSIUM AT 3.7, DR. MARCUS NOTIFIED AND 60 MEQ KCL ORDERED. PT TOOK OFF PUREWICK, NEW PUREWICK PLACED. PT OBSERVED TRYING TO REMOVE GOWN AND PULLING AT IV TUBING AND TELE CORDS FREQUENTLY; EDUCATED AND REDIRECTED. BED LOWERED, CALL LIGHT IN REACH.
--- NOTE | 2024-07-06 07:48 | NUR ---
ASSUMED CARE OF PATIENT AT APPROXIMATELY 0700. REPORT RECEIVED FROM BRITTON MUNOZ. PT RESTING IN BED, AROUSES TO VERBAL STIMULI. INTERACTING c STAFF APPROPRIATELY DURING BEDSIDE REPORT. CONTINUOUS CARDIAC MONITORING IN PLACE SHOWS SR, BP STABLE. ON RA c O2 SATURATION > 92%. PUREWICK IN PLACE. INSULIN INFUSING AT 2.4 U/HR, D5 1/2 NS INFUSING AT 200 mL/HR, POTASSIUM REPLACEMENT INFUSING. SEE SHIFT ASSESSMENT FOR FULL DETAILS.
[2024-07-06 07:51] LABS: Bun/Creatinine Ratio 29.1 (12.0-20.0); Calcium, Blood 8.6 mg/dL (8.5-10.1); Creatinine, Blood 1.03 mg/dL (0.60-1.20); Potassium, Blood 3.7 mmol/L (3.5-5.5)
[2024-07-06] MEDS ORDERED: Aspirin 81 MG Chew PO SCH (09:00)
[2024-07-06] MEDS ORDERED: Enoxaparin 40 MG/0.4 ML SYR SC SCH (09:00)
[2024-07-06 11:41] LABS: Bun/Creatinine Ratio 29.4 (12.0-20.0); Calcium, Blood 8.7 mg/dL (8.5-10.1); Creatinine, Blood 0.95 mg/dL (0.60-1.20); Potassium, Blood 3.9 mmol/L (3.5-5.5)
[2024-07-06 16:03] LABS: Anion Gap 8 mmol/L (3-11); Blood Urea Nitrogen 24 mg/dL (8-24); Bun/Creatinine Ratio 25.3 (12.0-20.0); CO2, Blood 17 mmol/L (21-32); Calcium, Blood 8.5 mg/dL (8.5-10.1); Chloride, Blood 118 mmol/L (98-108); Cholesterol 90 mg/dL (50-200); Creatinine, Blood 0.95 mg/dL (0.60-1.20); Glomerular Filtration Rate 89 (60-); Glucose, Blood 172 mg/dL (70-99); HDL Cholesterol 44 mg/dL (>39); LDL/HDL RATIO 0.5; Low Density Lipoprotein Chol 22 mg/dL (0-110); Potassium, Blood 3.5 mmol/L (3.5-5.5); Sodium, Blood 139 mmol/L (136-145); Triglycerides 118 mg/dL (30-160); Very Low Density Lipoprot Chol 23 mg/dL (6-32)
[2024-07-06] MEDS ORDERED: Potassium Chloride 40 MEQ in NS 250 ML IV ONE ×3 (16:15→23:00)
--- NOTE | 2024-07-06 16:59 | NUR ---
Spoke with pt's this afternoon after discussion with CM. Carolyn states she is "at the end of her rope" and wants hospice for him. However, when chart reviewing, noted Progress Record by Dr. Manju Carbajal on 07/28/2022, that pt stated he quit taking insulin because he was depressed, along with the following: "62-year-old male with history of diabetes, hypertension, right AKA was admitted for DKA due to medication noncompliance. Today, his BGs much better controlled today. Patient appears bit more interactive and smiled at me. had serious concerns with him going home as he falls and she is unable to lift him up. His PCP wanted him to go to SNF. He worked with PT/OT who recommended SNF and he was happy with that plan. He did say he quit taking his insulin and all other medications due to his depression. He stated he tried to get help but was unable to get an appointment with any mental health specialist. He stated his was not happy with him as he has been urinating on the floor due to his uncontrolled blood sugar." When I spoke to pt today, he stated he "wants to live," and doesn't "want to ." Discussed with Dr. Zepeda, plan to further discuss with pt in the next day or 2 and update CM. Plan to talk further pt's Carolyn regarding this situation. The patient may not be able to safely return to his home without adequate assistance. This is pt's 2nd admission in 2 weeks with diabetic ketoacidosis.
--- NOTE | 2024-07-06 17:35 | NUR ---
SHIFT SUMMARY PT REMAINS ORIENTED TO ALL EXCEPT DATE/TIME. ABLE TO FOLLOW COMMANDS AND MAKE PURPOSEFUL MOVEMENTS. AFEBRILE. CONTINUOUS CARDIAC MONITORING SHOWS SR c HR IN 60'S-80'S. BP STABLE c MAP > 65. REMAINS ON RA c O2 SATURATION > 92%. NO BM THIS SHIFT. PUREWICK IN PLACE WITH YELLOW URINE OUT. INSULIN INFUSING AT 2.8 U/HR, D5 1/2 NS AT 200 mL/HR, KCL 40 REPLACEMENT INFUSING. WILL CONTINUE TO MONITOR AND REPORT TO ONCOMING RN.
[2024-07-06 18:59] LABS: Bun/Creatinine Ratio 24.4 (12.0-20.0); Calcium, Blood 8.8 mg/dL (8.5-10.1); Creatinine, Blood 0.94 mg/dL (0.60-1.20); Potassium, Blood 3.5 mmol/L (3.5-5.5)
[2024-07-06 23:16] LABS: Calcium, Blood 8.3 mg/dL (8.5-10.1); Creatinine, Blood 0.91 mg/dL (0.60-1.20); Potassium, Blood 3.9 mmol/L (3.5-5.5)
[2024-07-07] VITALS (63 sets, daily range): BP systolic 89–157; BP diastolic 46–108
[2024-07-07 03:04] LABS: Bun/Creatinine Ratio 18.9 (12.0-20.0); Calcium, Blood 8.3 mg/dL (8.5-10.1); Creatinine, Blood 0.9 mg/dL (0.60-1.20); Potassium, Blood 3.8 mmol/L (3.5-5.5)
[2024-07-07] MEDS ORDERED: Potassium Chloride 40 MEQ in NS 250 ML IV ONE (05:30)
--- NOTE | 2024-07-07 05:35 | NUR ---
SHIFT SUMMARY: PERFOMRED NIH STROKE SCALE AT 1999 AND SCORED 13; REASESSED AT 0400 AND SHOWED IMPROVEMENT WITH A SCORE OF 5, PT STATED HE NEEDED HIS GLASSESS IN ORDER TO PARTICIPATE IN THE ASSESSMENT MORE EFFECTIVELY. VITAL SIGNS STABLE THROUGHOUT THE SHIFT. GLUCOSE IS CHECKED HOURLY AND INSULIN DRIP TITRATED IN ACCORDANCE PER PROTOCOL. PT HAD FULL BED BATH AND LINEN CHANGE THIS SHIFT ALONG WITH A PUREWICK CHANGE; 1000ML DARK YELLOW URINE COLLECTED OVERNIGH. NO COMPLAINTS OF SOB OR CHEST PAIN, ABLE TO MAKE NEEDS KNOWN.
[2024-07-07 06:47] LABS: BASOPHILS ABSOLUTE AUTO 0.07 K/mm3 (0.00-0.23); BASOPHILS PERCENT AUTO 1 % (0-2); EOSINOPHILS ABSOLUTE AUTO 0.29 K/mm3 (0.00-0.68); EOSINOPHILS PERCENT AUTO 6 % (0-6); Hematocrit 40.5 % (37.0-53.0); Hemoglobin 14.3 g/dL (13.5-17.5); IMMATURE GRAN ABSOLUTE AUTO 0.02 K/mm3 (0.00-0.10); IMMATURE GRAN PERCENT AUTO 0 % (0-1); LYMPHOCYTES ABSOLUTE AUTO 1.72 K/mm3 (0.84-5.20); LYMPHOCYTES PERCENT AUTO 33 % (21-46); MONOCYTES ABSOLUTE AUTO 0.47 K/mm3 (0.16-1.47); MONOCYTES PERCENT AUTO 9 % (4-13); Mean Corpuscular HGB 31.6 pg (26.0-34.0); Mean Corpuscular HGB Conc 35.3 g/dL (31.5-36.5); Mean Corpuscular Volume 89 fL (80-100); Mean Platelet Volume 11.2 fL (9.1-12.4); NEUTROPHILS ABSOLUTE AUTO 2.67 K/mm3 (1.96-9.15); NEUTROPHILS PERCENT AUTO 51 % (41-73); Platelet Count 139 K/mm3 (150-400); RDW Coefficient Variation 13.7 % (11.7-14.2); RDW Standard Deviation 44.6 fL (35.1-46.3); Red Blood Cell Count 4.53 M/mm3 (4.30-5.90); White Blood Cell Count 5.24 K/mm3 (4.00-11.30)
[2024-07-07 07:06] LABS: Bun/Creatinine Ratio 16.2 (12.0-20.0); Calcium, Blood 8.2 mg/dL (8.5-10.1); Creatinine, Blood 0.93 mg/dL (0.60-1.20); Potassium, Blood 3.8 mmol/L (3.5-5.5)
--- NOTE | 2024-07-07 07:49 | NUR ---
ASSUME CARE OF PATIENT AT APPROXIMATELY 0700. REPORT RECIEVED FROM ALEXANDER. PT ASLEEP IN BED BUT AROUSES TO VERBAL STIMULI, INTERACTING WITH STAFF APPROPRIATELY. CONTINOUS CARDIAC MONITORING IN PLACE WI HR SHOWING SR, STABLE BP, ON ROOM AIR WITH 02 SATURATION GREATER THAN 92%. PUREWICK IN PLACE. INSLUIN INFUSING NOW AT 1.5 U/HR, D5 1/2 NS INFUSING 200 ML/HR, POTASSIUM INFUSING. SEE SHIFT ASSESSMENT FOR DETAILS.
[2024-07-07 11:11] LABS: Bun/Creatinine Ratio 15.5 (12.0-20.0); Calcium, Blood 8.7 mg/dL (8.5-10.1); Creatinine, Blood 0.84 mg/dL (0.60-1.20); Potassium, Blood 3.9 mmol/L (3.5-5.5)
[2024-07-07] MEDS ORDERED: Thiamine HCl 100 MG in NS 50 ML IV SCH (13:00)
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
[2024-07-07 15:29] LABS: Bun/Creatinine Ratio 13.3 (12.0-20.0); Calcium, Blood 8.4 mg/dL (8.5-10.1); Creatinine, Blood 0.83 mg/dL (0.60-1.20); Potassium, Blood 3.3 mmol/L (3.5-5.5)
--- NOTE | 2024-07-07 16:07 | NUR ---
SPOKE c DR. PUGA REGARDING PT RECENT LABS. PER DR. PUGA, OKAY FOR PATIENT TO HAVE SOMETHING TO EAT AT THIS TIME BUT CONTINUE INSULIN AND FLUIDS UNTIL CO2 IMPROVES.
[2024-07-07] MEDS ORDERED: Potassium Chloride 20 MEQ TabCR PO ONE (17:00)
--- NOTE | 2024-07-07 18:42 | NUR ---
SHIFT SUMMARY PT REMAINED ALERT, ORIENTED TO ALL EXCEPT DATE/TIME T/O ENTIRETY OF SHIFT. ABLE TO FOLLOW COMMANDS, MAKE PURPOSEFUL MOVEMENTS, AND MAKE NEEDS KNOWN. AFEBRILE AND DENIES PAIN. CONTINUOUS CARDIAC MONITORING IN PLACE SHOWS SR, BP STABLE c MAP > 65. ON RA c O2 SATURATION > 92%. NO BM THIS SHIFT. REINTRODUCE DIET PER DR. PUGA, TOLERATING WELL. TOLERATED PO MEDS WELL. ST EVAL COMPLET EARLIER THIS SHIFT. PUREWICK IN PLACE. INSULIN INFUSING AT 1.6 U/HR, D5 1/2 N INFUSING AT 200 mL/HR. WILL CONTINUE TO MONITOR AND REPORT TO ONCOMING RN.
[2024-07-07 19:12] LABS: Bun/Creatinine Ratio 11.6 (12.0-20.0); Calcium, Blood 7.7 mg/dL (8.5-10.1); Creatinine, Blood 0.77 mg/dL (0.60-1.20); Potassium, Blood 3.1 mmol/L (3.5-5.5)
[2024-07-07 22:48] LABS: Bun/Creatinine Ratio 11.9 (12.0-20.0); Creatinine, Blood 0.92 mg/dL (0.60-1.20); Potassium, Blood 3.6 mmol/L (3.5-5.5)
[2024-07-08] VITALS (18 sets, daily range): BP systolic 121–191; BP diastolic 48–102
[2024-07-08 02:39] LABS: BASOPHILS ABSOLUTE AUTO 0.05 K/mm3 (0.00-0.23); BASOPHILS PERCENT AUTO 1 % (0-2); EOSINOPHILS ABSOLUTE AUTO 0.47 K/mm3 (0.00-0.68); EOSINOPHILS PERCENT AUTO 10 % (0-6); Hematocrit 38.8 % (37.0-53.0); Hemoglobin 14.1 g/dL (13.5-17.5); IMMATURE GRAN ABSOLUTE AUTO 0.02 K/mm3 (0.00-0.10); IMMATURE GRAN PERCENT AUTO 0 % (0-1); LYMPHOCYTES PERCENT AUTO 29 % (21-46); MONOCYTES ABSOLUTE AUTO 0.39 K/mm3 (0.16-1.47); MONOCYTES PERCENT AUTO 9 % (4-13); Mean Corpuscular HGB 31.9 pg (26.0-34.0); Mean Corpuscular HGB Conc 36.3 g/dL (31.5-36.5); Mean Corpuscular Volume 88 fL (80-100); Mean Platelet Volume 11.1 fL (9.1-12.4); NEUTROPHILS ABSOLUTE AUTO 2.28 K/mm3 (1.96-9.15); NEUTROPHILS PERCENT AUTO 51 % (41-73); Platelet Count 143 K/mm3 (150-400); RDW Coefficient Variation 13.4 % (11.7-14.2); RDW Standard Deviation 42.9 fL (35.1-46.3); Red Blood Cell Count 4.42 M/mm3 (4.30-5.90); White Blood Cell Count 4.51 K/mm3 (4.00-11.30)
[2024-07-08 03:02] LABS: Bun/Creatinine Ratio 10.1 (12.0-20.0); Calcium, Blood 7.9 mg/dL (8.5-10.1); Creatinine, Blood 0.89 mg/dL (0.60-1.20); Potassium, Blood 3.6 mmol/L (3.5-5.5)
[2024-07-08] MEDS ORDERED: Potassium Chloride 20 MEQ TabCR PO ONE (04:50)
[2024-07-08 06:47] LABS: Bun/Creatinine Ratio 7.8 (12.0-20.0); Creatinine, Blood 0.9 mg/dL (0.60-1.20); Potassium, Blood 3.3 mmol/L (3.5-5.5)
--- NOTE | 2024-07-08 08:40 | NUR ---
START OF SHIFT THIS NURSE ASSUMED CARE AT APPROXIMATELY 0700. PT SITTING AND EATING BREAKFAST. PT DENIES ANY PAIN OR SOB AT THIS TIME. NIH PERFORMED, NO DECREASED SENSATION NOTED OR FACIAL DROOP. PT DOES HAVE L SIDED VISUAL LOSS AND PT DOES NOT KNOW THE MONTH. NIHSS 2 UPON ASSESSMENT. PT INSULIN GTT INFUSING PER FLOW SHEET. WILL CONTINUE WITH THE PLAN OF CARE.
[2024-07-08] MEDS ORDERED: Atorvastatin 10 MG Tab PO SCH (09:00)
[2024-07-08 11:25] LABS: Bun/Creatinine Ratio 7.6 (12.0-20.0); Calcium, Blood 8.4 mg/dL (8.5-10.1); Creatinine, Blood 0.92 mg/dL (0.60-1.20); Potassium, Blood 3.6 mmol/L (3.5-5.5)
[2024-07-08] MEDS ORDERED: Insulin Glargine-Yfgn 100 Unit/mL 3 ML SYR SC ONE (12:30)
[2024-07-08] MEDS ORDERED: NS 1,000 ML IV SCH (12:30)
[2024-07-08] MEDS ORDERED: Thiamine HCl 100 MG Tab PO SCH (12:35)
[2024-07-08] MEDS ORDERED: Lisinopril 10 MG Tab PO SCH (12:35)
[2024-07-08] MEDS ORDERED: Sodium Bicarbonate 650 MG Tab PO ONE (12:35)
[2024-07-08] MEDS ORDERED: Insulin Regular 100 UNIT/ML 10ML Vial SC SCH (16:30)
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
[2024-07-08] MEDS ORDERED: Insulin Glargine-Yfgn 100 Unit/mL 3 ML SYR SC SCH (21:00)
[2024-07-08] MEDS ORDERED: Sodium Bicarbonate 650 MG Tab PO SCH (21:00)
[2024-07-09 04:13] VITALS: BP 157/79
--- NOTE | 2024-07-09 04:40 | NUR ---
PT A&O X2, COULD NOT COMMUNICATE DATE, OR PRESIDENT. PT VS WNL, PO INTAKE POOR, REQUIRES ASSIT WITH EATING AND DRINKING. PT ONLY HAS X1 FUNCTIONAL ARM/HAND. HE ALSO KEEPS ASKING FOR DINNER, EVEN AFTER REORIENTING TO TIME OF DAY, AND TOLD THAT HE ALREADY HAD DINNER. CBG IN MID 200'S AND RECIEVES SSI. IVF RUNNING THROUGH NIGHT. DENIES PAIN. MALE PURWIK IN USE. PT DOES HAVE DIFFICULTY FOCUSING VISION TO THE LEFT. UNSURE WHAT D/C PLAN IS AT THIS TIME.
[2024-07-09 06:06] LABS: BASOPHILS ABSOLUTE AUTO 0.05 K/mm3 (0.00-0.23); BASOPHILS PERCENT AUTO 1 % (0-2); EOSINOPHILS ABSOLUTE AUTO 0.38 K/mm3 (0.00-0.68); EOSINOPHILS PERCENT AUTO 8 % (0-6); Hematocrit 37.9 % (37.0-53.0); Hemoglobin 13.6 g/dL (13.5-17.5); IMMATURE GRAN ABSOLUTE AUTO 0.03 K/mm3 (0.00-0.10); IMMATURE GRAN PERCENT AUTO 1 % (0-1); LYMPHOCYTES ABSOLUTE AUTO 1.77 K/mm3 (0.84-5.20); LYMPHOCYTES PERCENT AUTO 36 % (21-46); MONOCYTES ABSOLUTE AUTO 0.49 K/mm3 (0.16-1.47); MONOCYTES PERCENT AUTO 10 % (4-13); Mean Corpuscular HGB 31.7 pg (26.0-34.0); Mean Corpuscular HGB Conc 35.9 g/dL (31.5-36.5); Mean Corpuscular Volume 88 fL (80-100); NEUTROPHILS PERCENT AUTO 45 % (41-73); Platelet Count 153 K/mm3 (150-400); RDW Coefficient Variation 13.2 % (11.7-14.2); RDW Standard Deviation 42.8 fL (35.1-46.3); Red Blood Cell Count 4.29 M/mm3 (4.30-5.90); White Blood Cell Count 4.92 K/mm3 (4.00-11.30)
[2024-07-09 06:25] LABS: Bun/Creatinine Ratio 10.8 (12.0-20.0); Calcium, Blood 8.3 mg/dL (8.5-10.1); Creatinine, Blood 0.92 mg/dL (0.60-1.20); Potassium, Blood 3.2 mmol/L (3.5-5.5)
[2024-07-09 07:54] VITALS: BP 167/87
[2024-07-09] MEDS ORDERED: Potassium Chloride 20 MEQ TabCR PO SCH (12:00)
[2024-07-09 15:23] VITALS: BP 151/72
--- NOTE | 2024-07-09 17:18 | NUR ---
ASSUMED CARE OF PT. A/O X2-3 IS EASILY REDIRECTED AND WILL FOLLOW DIRECTIONS. PHYSICAL THERAPY IN WITH PT AND ASSISTED TO CHAIR. PT SHOULD BE 2 PERSON ASSIST TO CHAIR. I WAS ABLE TO HELP PT BACK TO CHAIR AFTER LUNCH AND PT WAS ABLE TO HOLD OWN WEIGHT WHEN TRANSFERING. PT PULLED OFF PURWIC SEVERAL TIME AND AFTER THE 3RD TIME WE DECIDED TO START USING URINAL INSTEAD. PT HAD NOT ISSUES REMAINING CONTINENT AND WAS ABLE TO CALL OUT WHEN NEEDING TO URINATE. .
[2024-07-09 21:50] VITALS: BP 169/79
--- NOTE | 2024-07-10 05:23 | NUR ---
PT A&O X3, FORGETFULL AT TIMES. INCONTINENT AT TIMES, AND WOULD NOT LEAVE MALE PURWIK ON. BG 220 AND RECIEVED LONG ACTING INSULIN, NO SSI ADMINISTERED. DENIES PAIN, AND CAN UTILIZE CALL SYSTEM. PT WITH NO BM X3 DAYS, AND STATES HE USUALLY GOES EVERY DAY, WILL ASSESS NEED FOR BOWEL CARE. SCD IN PLACE, AND PT TURNS TO RIGHT SIDE IN BED MOST OF THE TIME. B/P STILL REMAINS SLIGHTLY ELEVATED. AWAITING PLACEMENT.
[2024-07-10 06:04] VITALS: BP 142/76
[2024-07-10 07:12] LABS: BASOPHILS ABSOLUTE AUTO 0.05 K/mm3 (0.00-0.23); BASOPHILS PERCENT AUTO 1 % (0-2); EOSINOPHILS ABSOLUTE AUTO 0.37 K/mm3 (0.00-0.68); EOSINOPHILS PERCENT AUTO 7 % (0-6); Hematocrit 38.4 % (37.0-53.0); Hemoglobin 13.9 g/dL (13.5-17.5); IMMATURE GRAN ABSOLUTE AUTO 0.04 K/mm3 (0.00-0.10); IMMATURE GRAN PERCENT AUTO 1 % (0-1); LYMPHOCYTES ABSOLUTE AUTO 1.73 K/mm3 (0.84-5.20); LYMPHOCYTES PERCENT AUTO 31 % (21-46); MONOCYTES ABSOLUTE AUTO 0.54 K/mm3 (0.16-1.47); MONOCYTES PERCENT AUTO 10 % (4-13); Mean Corpuscular HGB 32.1 pg (26.0-34.0); Mean Corpuscular HGB Conc 36.2 g/dL (31.5-36.5); Mean Corpuscular Volume 89 fL (80-100); Mean Platelet Volume 11.1 fL (9.1-12.4); NEUTROPHILS ABSOLUTE AUTO 2.82 K/mm3 (1.96-9.15); NEUTROPHILS PERCENT AUTO 51 % (41-73); Platelet Count 160 K/mm3 (150-400); RDW Standard Deviation 42.2 fL (35.1-46.3); Red Blood Cell Count 4.33 M/mm3 (4.30-5.90); White Blood Cell Count 5.55 K/mm3 (4.00-11.30)
[2024-07-10 07:32] LABS: Bun/Creatinine Ratio 11.2 (12.0-20.0); Calcium, Blood 8.6 mg/dL (8.5-10.1); Creatinine, Blood 0.98 mg/dL (0.60-1.20); Potassium, Blood 3.8 mmol/L (3.5-5.5)
[2024-07-10 08:00] VITALS: BP 147/85
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
[2024-07-10] MEDS ORDERED: Polyethylene Glycol 3350 17 gm PO PRN (15:35)
[2024-07-10] MEDS ORDERED: Docusate Sodium/Senna 1 Tab PO PRN (15:35)
[2024-07-10 16:26] VITALS: BP 151/76
--- NOTE | 2024-07-10 19:30 | NUR ---
assumed care of pt. pt having a better day today, PT in with pt working with transfer to chair, pt still very weak and 2 person assist. pt was able to feed self today, stated he prefered to be fed by aid, but i enc him to feed self. vision still very impaired to left hemisphere. call light within reach but pt still calling out for help with urinal, due to his poor vision pt still cant find the call light, he also remains slightly forgetful.
[2024-07-10 20:11] VITALS: BP 144/78
[2024-07-11 02:16] VITALS: BP 128/78
--- NOTE | 2024-07-11 02:38 | NUR ---
SHIFT SUMMARY AFFECT PLEASANT,BRIGHTENS WITH APPROACH. NAUSEATED AT ONSET OF SHIFT WHICH PT REPORT SUBSIDED AFTER PRN ZOFRAN AND DI NOT RETURN . CBG AT HS WAS 304,EXPLAINED THIS COULD CAUSE NAUSEA. RECEIVED 3 UNITS REG INSULIN PER SLIDING SCALE AND 20 UNITS GLARGINE AT HS, HAD HS SNACK OF SUGAR FREE PUDDING. HAS BEEN INCONTINENT SEVERAL TIMES HAS NOT CALLED, FREQUENT ZEYNEP CARE WITH EA BRIEF CHANGE, SKIN INTACT-NO REDNESS OR BREAKDOWN NOTED,VSS. PT VOICED SADNESS THAT PER HIS CAT ALTAGRACIA IS MISSING-EMOTIONAL SUPPORT OFFERED.
[2024-07-11] MEDS ORDERED: Bisacodyl 10 MG Supp PR PRN (04:35)
[2024-07-11 05:31] LABS: BASOPHILS ABSOLUTE AUTO 0.06 K/mm3 (0.00-0.23); BASOPHILS PERCENT AUTO 1 % (0-2); EOSINOPHILS ABSOLUTE AUTO 0.21 K/mm3 (0.00-0.68); EOSINOPHILS PERCENT AUTO 3 % (0-6); Hematocrit 42.7 % (37.0-53.0); Hemoglobin 15.1 g/dL (13.5-17.5); IMMATURE GRAN ABSOLUTE AUTO 0.03 K/mm3 (0.00-0.10); IMMATURE GRAN PERCENT AUTO 1 % (0-1); LYMPHOCYTES ABSOLUTE AUTO 2.06 K/mm3 (0.84-5.20); LYMPHOCYTES PERCENT AUTO 34 % (21-46); MONOCYTES PERCENT AUTO 10 % (4-13); Mean Corpuscular HGB 31.4 pg (26.0-34.0); Mean Corpuscular HGB Conc 35.4 g/dL (31.5-36.5); Mean Corpuscular Volume 89 fL (80-100); Mean Platelet Volume 10.3 fL (9.1-12.4); NEUTROPHILS ABSOLUTE AUTO 3.13 K/mm3 (1.96-9.15); NEUTROPHILS PERCENT AUTO 51 % (41-73); Platelet Count 191 K/mm3 (150-400); RDW Coefficient Variation 13.1 % (11.7-14.2); Red Blood Cell Count 4.81 M/mm3 (4.30-5.90); White Blood Cell Count 6.09 K/mm3 (4.00-11.30)
[2024-07-11 05:53] LABS: Calcium, Blood 9.1 mg/dL (8.5-10.1); Creatinine, Blood 1.18 mg/dL (0.60-1.20); Potassium, Blood 3.7 mmol/L (3.5-5.5)
[2024-07-11 07:33] VITALS: BP 130/72
[2024-07-11 15:14] VITALS: BP 119/80
--- NOTE | 2024-07-11 17:34 | NUR ---
SHIFT ASSESSMENT HAD A LONG CONVERSATION THIS MORING WITH PT. DURING VISIT HE FREQUENLY PUT HIS HAND DOWN HIS ATTENDS AND PULLED ON HIS PENIS. HE HAS BEEN DEMANDING STAFF PLACE THE URINAL FOR VOIDING THEN PULLING HIS PENIS OUT AND PEEING ON THEM. CARE MANAGEMENT MENTIONED THAT THEY HAVEN'T BEEN ABLE TO REACH PT . ASKED PT IF HE HAD ANOTHER PHONE NUMBER FOR HIS . HE RELATED THAT HE DIDN'T UNDERSTAND WHY SHE WASN'T ANSWERING THE PHONE. HE THEN STATED," I GUESS SHE DOESN'T CARE ANYMORE." ASKED WHY HE THOUGHT THAT. HE THEN STATED," I WAS USING THE URINAL AND I SPILLED IT ON THE BED." ASKED HIM IF HE USES THE URINAL AT HOME BY HIMSELF. HE ROLLED HIS EYES AND STATE," OF COURSE I DO. I'M NOT A BABY." ASKED HIM WHY HE HAS BEEN DEMANDING THAT STAFF PLACE THE URINAL WHEN HE USES IT BY HIMSELF AT HOME? " HE STATED," I LIKE IT." WE THAN HAD A LONG CONVERSATION ABOUT RESPECT FOR HIS CAREGIVERS. PT HAS BEEN USING HIS URINAL INDEPENDANTLY SINCE. HE HAS LEFT HIS ATTENDS ON. HE IS NO LONGER PUTTING HIS HAND DOWN HIS PANTS WHEN STAFF COME IN. HE FED HIMSELF INDEPENDENTLY FOR LUNCH. SET UP ONLY WHILE SITTING IN THE CHAIR. 1 PERSON MODERATE TRANSFER WITH GAIT BELT BACK TO BED. HE IS PULLING HIMSELF UP IN BED WELL. PT H[facility] CARE ONGOING.
[2024-07-11 20:04] VITALS: BP 142/89
[2024-07-11] MEDS ORDERED: Insulin Glargine-Yfgn 100 Unit/mL 3 ML SYR SC SCH (21:00)
[2024-07-12 03:09] VITALS: BP 122/64
[2024-07-12 07:27] VITALS: BP 141/76
[2024-07-12] MEDS ORDERED: Calcium Carbonate 500 MG Tab Chew PO PRN (11:15)
--- NOTE | 2024-07-12 17:17 | NUR ---
SHIFT SUMMARY PT AO X2, SLIGHTLY CONFUSED. PT TRANSFER WITH 2 PERSON ASSIST. PT WAS UP ON CHAIR AND TOLERATED WELL. NO ACUTE CHANGES DURING THIS SHIFT.
[2024-07-12 17:19] VITALS: BP 139/65
[2024-07-12 19:50] VITALS: BP 124/81
--- NOTE | 2024-07-13 03:24 | NUR ---
SHIFT SUMMARY UNEVENTFUL SHIFT. REMAINS INCONTINENT OF URINE VS SPILLAGE. MAY BE BEHAVIORAL. ANSWERS QUESTIONS APPROPRIATELY. IS ORIENTED X 4 BUT FORGETFUL. AFFECT FLAT. MOOD DYSTHYMIC. VS ARE STABLE. SKIN IS INTACT. ABLE TO TURN TO RT SIDE W/O HELP. NEEDS HELP TO TURN TO LEFT SIDE. FEEDS SELF WITH ASSIST AT TIMES. HOLDS CUP AND DRINKS FLUIDS INDEPENDENTLY AFTER SET UP. ABLE TO VOICE NEEDS.
[2024-07-13 03:49] VITALS: BP 163/84
[2024-07-13 07:29] VITALS: BP 123/93
[2024-07-13 15:14] VITALS: BP 133/88
--- NOTE | 2024-07-13 16:58 | NUR ---
SHIFT SUMMARY PT AO X3, FORGETFUL AT TIMES, ADEQUATE INTAKE AND OUTPUT. NO ACUTE CHANGES DURING THIS SHIFT.
[2024-07-13 19:37] VITALS: BP 136/84
[2024-07-13] MEDS ORDERED: Insulin Glargine-Yfgn 100 Unit/mL 3 ML SYR SC SCH (21:00)
[2024-07-14 04:21] VITALS: BP 140/80
--- NOTE | 2024-07-14 05:01 | NUR ---
[facility] NURSING DIRECTOR SUMMARY PT A/OX3. NO ACUTE CHANGES. PT CALLED RN TO BEDSIDE A FEW TIMES TO DISCUSS PLAN OF CARE AND CONCERNS FOR DENTAL HEALTH. PT HAS HAD DENTIAL CONSULT IN HOSPITAL AND REFERRAL TO [facility]. PT WORRIES HE WILL NOT BE ABLE TO FOLLWO UP ONCE OUT OF THE HOSPITAL. PROVIDED SUPPORTIVE LISTENING. PT ABLE TO MAKE NEEDS KNOWN WITH PROMPTS. ENCOURAGED PT TO USE CALL LIGHT TO CONTACT STAFF FOR ASSIST. CALL LIGHT ACCESSIBE.
[2024-07-14 07:20] VITALS: BP 129/79
[2024-07-14 08:39] LABS: BASOPHILS ABSOLUTE AUTO 0.08 K/mm3 (0.00-0.23); BASOPHILS PERCENT AUTO 1 % (0-2); EOSINOPHILS ABSOLUTE AUTO 0.37 K/mm3 (0.00-0.68); EOSINOPHILS PERCENT AUTO 6 % (0-6); Hematocrit 41.2 % (37.0-53.0); Hemoglobin 14.3 g/dL (13.5-17.5); IMMATURE GRAN ABSOLUTE AUTO 0.04 K/mm3 (0.00-0.10); IMMATURE GRAN PERCENT AUTO 1 % (0-1); LYMPHOCYTES ABSOLUTE AUTO 2.08 K/mm3 (0.84-5.20); LYMPHOCYTES PERCENT AUTO 34 % (21-46); MONOCYTES ABSOLUTE AUTO 0.59 K/mm3 (0.16-1.47); MONOCYTES PERCENT AUTO 10 % (4-13); Mean Corpuscular HGB 31.3 pg (26.0-34.0); Mean Corpuscular HGB Conc 34.7 g/dL (31.5-36.5); Mean Corpuscular Volume 90 fL (80-100); NEUTROPHILS ABSOLUTE AUTO 2.96 K/mm3 (1.96-9.15); NEUTROPHILS PERCENT AUTO 48 % (41-73); Platelet Count 197 K/mm3 (150-400); RDW Coefficient Variation 12.9 % (11.7-14.2); RDW Standard Deviation 41.5 fL (35.1-46.3); Red Blood Cell Count 4.57 M/mm3 (4.30-5.90); White Blood Cell Count 6.12 K/mm3 (4.00-11.30)
[2024-07-14 08:54] LABS: Bun/Creatinine Ratio 14.8 (12.0-20.0); Calcium, Blood 8.5 mg/dL (8.5-10.1); Creatinine, Blood 1.35 mg/dL (0.60-1.20); Potassium, Blood 3.9 mmol/L (3.5-5.5)
--- NOTE | 2024-07-14 12:05 | NUR ---
REPORT CALLED TO TATO MUNIZ AT [facility]. EXPECTED TIME OF TRANSFER 1330HRS.
[2024-07-14] MEDS ORDERED: ASPI81CH PO (13:24)
[2024-07-14] MEDS ORDERED: BISA10S PR (13:24)
[2024-07-14] MEDS ORDERED: TUMS500 MG PO (13:26)
[2024-07-14] MEDS ORDERED: FT SENNA-S 8.61 EACH PO (13:27)
[2024-07-14] MEDS ORDERED: HUMULIN R100 UNIT/1 (13:38)
[2024-07-14 14:41] VITALS: BP 144/101
--- NOTE | 2024-07-14 15:16 | NUR ---
MR GRIJALVA IS ORIENTATED TO SELF, PLACE, SITUATION, NOT MONTH OR DATE. HE FORGETS EVENTS THAT HAVE HAPPENED TO HIM AND HAS BEEN REMINDED OF PLAN OF CARE. CIONTINENT AND INCONTINENT OF URINE TODAY. UP TO CHAIR FOR BREAKFAST, 1 PERSON ASSIST WITH STAND/.PIVOT. RIGHT HAND CONTRACTED WITH MINIMAL MOVEMENT. LEFT HAND GENERALLY WEAK BUT ABLE TO FEED HIMSELF WITH PROMPTING. TOOK MEDS IN PUDDING ONE AT A TIME EASILY. WAS HERE AT BEDSIDE EARLIER TODAY. AWAITING TRANSFER TO [place] FOR SNF, MEDICAL TRANSPORT BOOKED FOR 1530HRS. PIV REMOVED. BED LOW, CALL [facility] [place].
--- NOTE | 2024-07-14 15:58 | NUR ---
MEDICAL TRANSFER AT 1540HRS. NO NEW QUESTIONS OR CONCERNS FROM MR VALENTINE ARANGO TO TRANSFER.
== END 2024-07-14 15:42 | DRG 64 ==
LOC: ER 17:05 → ICUE 21:34 → MEDS 21:34 → ICUE 22:40 → MEDS 07-08 17:20
PROVIDERS: Family Medicine; Internal Medicine; Nurse Practitioner Acute Care; Student in an Organized Health Care Education/Training Program; ADMIT Student in an Organized Health Care Education/Training Program
DX: I63.89 Other cerebral infarction (principal); E11.10 Type 2 diabetes mellitus with ketoacidosis without coma; G92.8 Other toxic encephalopathy; G93.41 Metabolic encephalopathy; F03.93 Unspecified dementia, unspecified severity, with mood disturbance; F03.94 Unspecified dementia, unspecified severity, with anxiety; F03.911 Unspecified dementia, unspecified severity, with agitation; I10 Essential (primary) hypertension; E78.5 Hyperlipidemia, unspecified; E87.6 Hypokalemia; R62.7 Adult failure to thrive; T38.3X6A Underdosing of insulin and oral hypoglycemic [antidiabetic] drugs, initial encounter; Z91.138 Patient's unintentional underdosing of medication regimen for other reason; Z74.1 Need for assistance with personal care; Z89.611 Acquired absence of right leg above knee; Z91.198 Patient's noncompliance with other medical treatment and regimen for other reason; Z88.5 Allergy status to narcotic agent; Z68.27 Body mass index [BMI] 27.0-27.9, adult; Z79.4 Long term (current) use of insulin; Z79.84 Long term (current) use of oral hypoglycemic drugs; Z87.891 Personal history of nicotine dependence
CPT/HCPCS: 36415; 70450; 70551; 80048; 80053; 80061; 81001; 82010; 82803; 82947; 83036; 83735; 84484; 85025; 87086; 92610; 93005; 93010; 93306; 93880; 96361; 96374; 97110; 97110-CQ; 97112; 97161; 97165; 97530; 97535; 99285-25; A6590; A9270; J1650; J1815; J2405; J3411; J3480; J7030; J7042; J7050; J7120